=== PATIENT | female | born 1945 | race Caucasian/White ===

== ENCOUNTER 2023-11-14 09:45 | Emergency (ER) | payer MEDICARE, SELFPAY ==
[2023-11-14 09:45] VITALS: BMI 25.6
[2023-11-14 09:46] VITALS: BP 186/76
--- NOTE | 2023-11-14 10:30 | ED.GENMED ---
History of Present Illness
<Yaneli Mosley PA-C - Last Filed: 11/16/23 21:51>
General
Chief Complaint: Fall
Source: patient
Exam Limitations: none
Time Seen by Provider: 11/14/23 09:56
Nursing documentation reviewed up to this point in time: agreed with
History of Present Illness
History of Present Illness:
Patient is an 78-year-old female presenting to the emergency department for evaluation of right flank pain following fall earlier today. Patient states that she was getting out of bed to use the bathroom around 5 to 6 AM when she slipped out of bed
striking her right flank on her dresser drawer. Patient is confident that she did not hit her head or lose consciousness. She was able to get up herself and slowly shuffle to the bathroom. She has been having severe pain in her right flank since,
definitely worse with movement. Patient denies any other injury sustained during fall. Patient specifically denies any headache, neck pain, chest pain, or shortness of breath. Patient denies any numbness tingling of lower extremities or loss of
bowel/bladder control.
Patient is not on any blood thinners
Past History
<Yaneli Mosley PA-C - Last Filed: 11/16/23 21:51>
Past History
ED Past Medical History: GERD and Other (IBS)
ED Past Surgical History: Orthopedic (lumbar fusion)
Social History
Tobacco: Former smoker
Alcohol: Occasional
Drug: None
Personal:
Living: with family
Review of Systems
<SUE Lopez Last Filed: 11/16/23 21:51>
Review of Systems
Allergies reviewed?: Yes
All Other Systems: ROS reviewed and negative except as documented in HPI and ROS
Phy Exam
<Yaneli Mosley PA-C - Last Filed: 11/16/23 21:51>
Physical Exam
Physical Exam:
Vitals: Hypertensive, otherwise vital signs stable. Afebrile
General: Patient is moderately uncomfortable due to pain, no acute distress. Nontoxic-appearing
Skin: Warm and dry. Abrasion with surrounding ecchymosis and erythema to right flank.
Head: Normocephalic, atraumatic
Eyes: Sclera nonicteric. EOMs intact. No nystagmus.
Throat: Protecting airway
Neck: Normal ROM, no cervical spine tenderness, no meningismus. Trachea midline
Cardiac: Regular rate and rhythm, no murmurs.
Pulm: Normal respiratory effort, no wheezes, rales, rhonchi heard on exam.
Abdomen: Moderate diffuse abdominal tenderness with voluntary guarding.
Back: Significant tenderness around right lateral lower ribs with abrasion to right flank as noted above. No midline spinal tenderness
Extremities: No evidence of cyanosis or edema. Great distal pulses. Bilateral upper and lower extremities atraumatic and nontender with full range of motion
Neuro: AAOx3. CN II-XII intact. No focal neurologic deficits. Sensation fully
Psychiatric: Normal affect.
Course
<Yaneli Mosley PA-C - Last Filed: 11/16/23 21:51>
Orders/Labs/Results
Orders:
Orders
11/14/23 09:53
Ribs, Right 3 View W/PA Chest [CR Ribs-right 3 Vw W/pa Chest*] Urgent
Comment:
Reason For Exam: pain
11/14/23 10:26
Acetaminophen [Tylenol] 650 mg PO NOW STA
11/14/23 10:43
Diphenhydramine [Benadryl] 50 mg IV NOW STA
Hydrocortisone Sod Succinate [Solu-Cortef] 200 mg IV NOW STA
11/14/23 10:44
CT Abd/pelvis W Iv Cont Urgent
Comment:
Reason For Exam: trauma ,R flank pain + bruising
11/14/23 10:52
Complete Blood Count/With Diff Urgent
Comprehensive Metabolic Panel Urgent
Abnormal Lab Results
11/14/23
10:52
RBC 3.77 L 10^6/uL
(4.20-5.40)
Hct 36.2 L %
(37.0-47.0)
MCH 32.6 H pg
(27.0-31.0)
Absolute Lymphs (auto) 0.7 L 10^3/uL
(1.2-3.4)
Absolute Monos (auto) 0.8 H 10^3/uL
(0.1-0.6)
Lymphocytes % 8.9 L %
(20.5-51.1)
Monocytes % 10.9 H %
(1.7-9.3)
Glucose 104 H mg/dl
(70-99)
AST 43 H U/L
(14-36)
ALT 45 H U/L
(0-35)
Alkaline Phosphatase 159 H U/L
(38-126)
11/14/23 10:52
11/14/23 10:52
Vital Signs
Initial and Last Documented VS:
Initial Vital Signs
Temp Pulse Resp BP Pulse Ox
98.6 F 84 20 186/76 97
11/14/23 09:46 11/14/23 09:46 11/14/23 09:46 11/14/23 09:46 11/14/23 09:46
Last Documented Vital Signs
Temp Pulse Resp BP Pulse Ox
98.1 F 78 18 172/64 99
11/14/23 13:31 11/14/23 13:31 11/14/23 13:31 11/14/23 13:31 11/14/23 13:31
<Gina Pizano MD - Last Filed: 11/14/23 10:50>
Orders/Labs/Results
Orders:
Orders
11/14/23 09:53
Ribs, Right 3 View W/PA Chest [CR Ribs-right 3 Vw W/pa Chest*] Urgent
Comment:
Reason For Exam: pain
11/14/23 10:26
Acetaminophen [Tylenol] 650 mg PO NOW STA
11/14/23 10:43
Diphenhydramine [Benadryl] 50 mg IV NOW STA
Hydrocortisone Sod Succinate [Solu-Cortef] 200 mg IV NOW STA
11/14/23 10:44
CT Abd/pelvis W Iv Cont Urgent
Comment:
Reason For Exam: trauma ,R flank pain + bruising
11/14/23 10:52
Complete Blood Count/With Diff Urgent
Comprehensive Metabolic Panel Urgent
Abnormal Lab Results
11/14/23
10:52
RBC 3.77 L 10^6/uL
(4.20-5.40)
Hct 36.2 L %
(37.0-47.0)
MCH 32.6 H pg
(27.0-31.0)
Absolute Lymphs (auto) 0.7 L 10^3/uL
(1.2-3.4)
Absolute Monos (auto) 0.8 H 10^3/uL
(0.1-0.6)
Lymphocytes % 8.9 L %
(20.5-51.1)
Monocytes % 10.9 H %
(1.7-9.3)
Glucose 104 H mg/dl
(70-99)
AST 43 H U/L
(14-36)
ALT 45 H U/L
(0-35)
Alkaline Phosphatase 159 H U/L
(38-126)
11/14/23 10:52
11/14/23 10:52
Vital Signs
Initial and Last Documented VS:
Initial Vital Signs
Temp Pulse Resp BP Pulse Ox
98.6 F 84 20 186/76 97
11/14/23 09:46 11/14/23 09:46 11/14/23 09:46 11/14/23 09:46 11/14/23 09:46
Last Documented Vital Signs
Temp Pulse Resp BP Pulse Ox
98.1 F 78 18 172/64 99
11/14/23 13:31 11/14/23 13:31 11/14/23 13:31 11/14/23 13:31 11/14/23 13:31
<Yaneli Mosley PA-C - Last Filed: 11/16/23 21:51>
MDM/Problems Addressed
Differential Diagnosis Includes:
Not limited to: Contusion, rib fracture, kidney laceration, liver laceration, hemorrhage,
MDM/Problems Addressed:
78 year old female presenting with right flank pain following mechanical fall out of bed earlier today. No associated shortness of breath. Vitals stable. Patient alert and oriented, well appearing. She does have an abrasion with surrounding erythema
and ecchymosis of her right flank. No evidence of head trauma. cervical spine and midline spine nontender. Heart regular rate and rhythm. Lungs clear bilaterally. No focal neurologic deficits. Patients abdomen is soft although she does have
significant discomfort throughout abdomen with palpation. Patient did produce urine in emergency department which showed no hemturia. Ribs series w/ chest xray was performed which showed no acute rib fractures or other acute abnormalities. Given
significant abdominal discomfort in setting of right flank injury will check basic labs and obtain CT of abdomen.
Patient has been walking to and from bathroom without difficulty. CT pending.
CT report reviewed. Contusion noted to right flank, otherwise no acute abnormalities. 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 Patient was provided a printed out copy of radiology report and will see primary care for monitoring of pancreas cyst. She
believes this has been noted on prior scans. Otherwise patient is comfortable appearing and stable for discharge. Recommended tylenol/ lidocaine patches at home as needed. Return precautions discussed.
Chronic conditions affecting care:
N/A
Acute Exacerbation and/or Progression of Chronic Illness:
N/A
<Yaneli Mosley PA-C - Last Filed: 11/16/23 21:51>
*Radiology
Radiology exam reviewed: preliminary read by ED provider and radiology read reviewed
*Pulse Oximetry
Patient hypoxic: no
*EKG
Interpreted by ED Provider?: NA
*Digital Project Manager Interpretation
Rate: Digital Project Manager- N/A
*Critical Care Note
Total Time (30-74mins, 75-104mins- exclusive of procedures): Not Applicable
ED Attending Note
<Yaneli Mosley PA-C - Last Filed: 11/16/23 21:51>
-
Portions of this chart may have been created with voice recognition software.� Occasional wrong word or��sound alike� substitutions may have occurred due to the inherent limitations of voice recognition software.
<Gina Pizano MD - Last Filed: 11/14/23 10:50>
ED Attending Note
Patient seen and examined by attending physician: Yes
I performed the substantive portion of visit, reviewed & personally made and approve the management plan that is documented in note by myself or NEHA.: Yes
ED Attending Note:
Patient evaluated by me. There is no history or exam findings to suggest head or neck trauma. Patient does have an abrasion with a mild amount of surrounding erythema and ecchymoses of right flank area. Patient also complains of vague diffuse
abdominal pain as well. Patient produced urine which showed no sign of visible blood, however, given her abdominal pain and evidence of flank bruising and abrasion, we will proceed with doing a CAT scan. Patient is fully awake, alert and
hemodynamically stable.
Discharge Plan
Departure
Patient Disposition: Home (Routine Discharge)
Date of Disposition: 11/14/23
Time of Disposition: 13:04
Patient with high blood pressure during this ER visit?: Yes
Condition: Good
Covid-19: Not Applicable
Discharge Problem:
Contusion of flank
Instructions: Contusion (DC), Skin Abrasions (DC), BLOOD PRESSURE
Prescriptions:
No Action
cyanocobalamin (vitamin B-12) 1,000 MCG tablet
1,000 mcg PO DAILY
calcium carbonate 600 MG tablet
600 mg PO DAILY
esomeprazole magnesium [Nexium 24HR] 20 MG capsule,delayed release(DR/EC)
20 mg PO DAILY
duloxetine 30 MG capsule,delayed release(DR/EC)
30 mg PO BID
cholecalciferol (vitamin D3) 2,000 UNIT tablet
2,000 unit PO DAILY
buspirone 5 mg Tablet
5 mg PO TID
bupropion HCl 100 mg Tablet
100 mg PO BID
magnesium 200 mg Tablet
400 mg PO DAILY
levothyroxine 50 mcg Capsule
50 mcg PO DAILY
Cbd Gummies
1 gum PO DAILY
docusate sodium 100 mg Capsule
100 mg PO BID Qty: 1 0RF
sennosides [senna] 8.6 mg Tablet
17.2 mg PO BID Qty: 2 0RF
acetaminophen [Pain Reliever ES(acetaminophn)] 500 mg Tablet
1,000 mg PO QID Qty: 2 0RF
prednisone 10 mg tablet
40 mg PO TAPER Qty: 10 0RF
Rx Instructions:
4 tab(40mg) day 1, 3 tabs(30mg) day 2, 2 tabs(20mg) day3,
1 tab (10mg) day 4, then stop
tizanidine 2 mg capsule
2 mg PO HS Qty: 1 0RF
Rx Instructions:
*Rx provided by Sheri Mccauley
tramadol 50 mg tablet
50 - 100 mg PO Q6H PRN (Reason: 1 tab moderate, 2 tabs if pain severe) Qty: 30 0RF
Rx Instructions:
Dx Orthopedic surgery
Ongoing therapy
valacyclovir [Valtrex] 1 gram tablet
1,000 mg PO DAILY Qty: 7 0RF
Referrals:
Schuyler García MD [Family Provider] - Follow up in 5-7 days
Activity Restrictions/Additional Instructions:
RETURN TO THE EMERGENCY DEPARTMENT WITH ANY INTRACTABLE PAIN, SEVERE ABDOMINAL PAIN, BLOOD IN YOUR URINE, INTRACTABLE NAUSEA/VOMITING, FEVERS, CHEST PAIN, SHORTNESS OF BREATH, WORSENING IN CURRENT SYMPTOMS, OR ANY OTHER CONCERNS
-It is likely that you suffered a contusion to your right flank. You should take it easy over the next 2 days. You can take Tylenol as needed for discomfort. You can also try lidocaine patches that can be found [id number]. Apply ice to the
area as needed.
-As discussed/there was a small cyst seen on your pancreas on the CT scan. You should follow-up with your primary care regarding this to have an outpatient MRI.
-You should also touch base with your primary care provider regarding history of tetanus vaccines and have it updated if needed.
Follow-up with your primary care friend for further evaluation in about a week to ensure symptoms are improving. Monitor symptoms closely return to the emergency department any acute worsening/new symptoms.
Interventions
Interventions:
*Risk Screen - Suicide Last Done: 11/14/23 09:46
*General Assessment Last Done: 11/14/23 09:46
*Neglect/Abuse Screening Last Done: 11/14/23 09:46
ED- Fall Risk Assessment Last Done: 11/14/23 13:31
*ED COVID-19 Vaccine History Last Done: 11/14/23 09:46
*Nursing Disposition Last Done: 11/14/23 13:31
ED-Musculoskeletal Assessment Last Done: 11/14/23 09:46
ED- Neurological Assessment Last Done: 11/14/23 09:46
ED-Skin Assessment Last Done: 11/14/23 09:46
Discharge Date and Time
Discharge Date/Time: 11/14/23 13:33
Print Language: RWANDAN
[2023-11-14 10:46] VITALS: BP 185/76
[2023-11-14 11:00] VITALS: BP 176/76
[2023-11-14 11:00] LABS: % Basophils 0.9 % (0-2); % Eosinophils 4.3 % (0-6); % Immature Granulocytes 0.4 % (0-0.5); % Lymphocytes 8.9 % (20.5-51.1); % Monocytes 10.9 % (1.7-9.3); % Neutrophils 74.6 % (42.2-75.2); Absolute Basophils 0.1 10^3/uL (0-0.2); Absolute Eosinophils 0.3 10^3/uL (0-0.7); Absolute Lymphocytes 0.7 10^3/uL (1.2-3.4); Absolute Monocytes 0.8 10^3/uL (0.1-0.6); Absolute Neutrophils 5.5 10^3/uL (1.4-6.5); Hematocrit 36.2 % (37.0-47.0); Hemoglobin 12.3 g/dL (12.0-16.0); Mean Corpuscular Hgb 32.6 pg (27.0-31.0); Mean Platelet Volume 9.9 fL (7.4-10.4); Nucleated Red Blood Cells % 0 %; Platelet Count 213 10^3/uL (130-400); Red Blood Cell Count 3.77 10^6/uL (4.20-5.40); Red Cell Dist. Width 14.1 % (11.5-14.5); White Blood Cell Count 7.4 10^3/uL (4.8-10.8)
[2023-11-14] MEDS: BENADRYL 50 MG IV (11:02)
[2023-11-14] MEDS: TYLENOL 650 MG PO (11:04)
[2023-11-14] MEDS: SOLU-CORTEF 200 MG IV (11:04)
[2023-11-14 11:19] LABS: ALT (SGPT) 45 U/L (0-35); AST (SGOT) 43 U/L (14-36); Albumin 4.4 g/dl (3.5-5.0); Alkaline Phosphatase 159 U/L (38-126); Blood Urea Nitrogen 14 mg/dl (7-17); Calcium 9.7 mg/dl (8.4-10.2); Carbon Dioxide 27 mmol/L (22-30); Chloride 102 mmol/L (98-107); Estimated Creatinine Clearance 52 ml/min; Glucose 104 mg/dl (70-99); Potassium 4.1 mmol/L (3.5-5.1); Sodium 137 mmol/L (135-145); Total Bilirubin 0.6 mg/dl (0.2-1.3); Total Protein 7.2 g/dl (6.3-8.2); eGFR > 60.00
[2023-11-14 12:02] VITALS: BP 180/74
[2023-11-14 13:31] VITALS: BP 172/64
== END 2023-11-14 13:33 | disposition home or self-care (01) ==
LOC: EMR 09:45
PROVIDERS: Physician Assistant; EMERGENCY PHYSICIAN Emergency Medicine; FAMILY PHYSICIAN Family Medicine
DX: S30.1XXA Contusion of abdominal wall, initial encounter (principal); R10.84 Generalized abdominal pain; S30.811A Abrasion of abdominal wall, initial encounter; W06.XXXA Fall from bed, initial encounter; K86.2 Cyst of pancreas; I48.91 Unspecified atrial fibrillation; M19.90 Unspecified osteoarthritis, unspecified site; E03.9 Hypothyroidism, unspecified; I73.00 Raynaud's syndrome without gangrene; K21.9 Gastro-esophageal reflux disease without esophagitis; K58.9 Irritable bowel syndrome, unspecified; F41.9 Anxiety disorder, unspecified; F32.A Depression, unspecified; Z85.3 Personal history of malignant neoplasm of breast; Z85.89 Personal history of malignant neoplasm of other organs and systems; Z87.891 Personal history of nicotine dependence; Z98.1 Arthrodesis status; Z90.49 Acquired absence of other specified parts of digestive tract; Z88.8 Allergy status to other drugs, medicaments and biological substances; Z91.048 Other nonmedicinal substance allergy status
CPT/HCPCS: 99285; 96375; 96374; 71101; 74177; 80053; 85025; Q9967

== ENCOUNTER → 2023-12-30 11:12 | Outpatient (REF) | payer MEDICARE, SELFPAY | LOC: DHVS 11:12 | PROVIDERS: ATTENDING PHYSICIAN Registered Nurse; REFERRING PHYSICIAN Radiology Vascular & Interventional Radiology | DX: I73.9 Peripheral vascular disease, unspecified (principal) | CPT/HCPCS: 93922; 93925 ==

== ENCOUNTER → 2024-03-12 18:21 | Outpatient (REF) | payer MEDICARE, SELFPAY | LOC: MRI 18:21 | PROVIDERS: ATTENDING PHYSICIAN Internal Medicine; FAMILY PHYSICIAN Family Medicine | DX: M54.16 Radiculopathy, lumbar region (principal); M54.59 Other low back pain; M96.1 Postlaminectomy syndrome, not elsewhere classified | CPT/HCPCS: 72146 ==

== ENCOUNTER → 2024-07-16 16:11 | Outpatient (REF) | payer OTHER, SELFPAY | LOC: MRI 3T 16:11 | PROVIDERS: ATTENDING PHYSICIAN Specialist; FAMILY PHYSICIAN Family Medicine | DX: M96.1 Postlaminectomy syndrome, not elsewhere classified (principal); M54.16 Radiculopathy, lumbar region | CPT/HCPCS: 72148 ==

== ENCOUNTER → 2025-03-04 17:01 | Outpatient (REF) | payer OTHER, SELFPAY | LOC: RAD 17:01 | PROVIDERS: ATTENDING PHYSICIAN Nurse Practitioner Family; FAMILY PHYSICIAN Internal Medicine | DX: R05.1 Acute cough (principal); R06.02 Shortness of breath | CPT/HCPCS: 71046 ==